=== PATIENT | female | born 1985 | race Caucasian/White ===

== ENCOUNTER 2018-10-20 08:29 | Inpatient (IN) | payer OTHER ==
[2018-10-20 09:26] VITALS: BMI 18.9
--- NOTE | 2018-10-20 10:00 | HP ---
COWS - Scale Resting Pulse: 0= MS 80 or Below Sweatin= Chills/Flushing Restless Observation: 1= Difficult to Sit Still Pupil Size: 1= Pupils >than Normal Bone or Joint Aches: 2= Severe Diffuse Aches Runny Nose/ Eye Tearin= Runny Nose/Eyes GI Upset > 30mins: 3= Vomiting/Diarrhea Tremor Observation: 2= Slight Tremor Visible Yawning Observation: 2= >3x During Session Anxiety or Irritability: 2=Irritable/Anxious Goose Flesh Skin: 0=Smooth Skin COWS Score: 16 CIWA Score Nausea/Vomitin Muscle Tremors: 2 Anxiety: 2 Agitation: 2 Paroxysmal Sweats: 1-Minimal Palms Moist Orientation: 0-Oriented Tacttile Disturbances: 1-Very Mild Itch/Numbness Auditory Disturbances: 1-Very Mild Visual Disturbances: 0-None Headache: 2-Mild CIWA-Ar Total Score: 13 - Admission Criteria OASAS Guidelines: Admission for Medically Managed Detox: Requires at least one of the followin. CIWA greater than 12 2. Seizures within the past 24 hours 3. Delirium tremens within the past 24 hours 4. Hallucinations within the past 24 hours 5. Acute intervention needed for co occurring medical disorder 6. Acute intervention needed for co occurring psychiatric disorder 7. Severe withdrawal that cannot be handled at a lower level of care (continued vomiting, continued diarrhea, abnormal vital signs) requiring intravenous medication and/or fluids 8. Admission ROS [facility] Chief Complaint: i need help to stop using heroin ,xanax,klonopin,ccoaine,marijuana Allergies/Adverse Reactions: Allergies Allergy/AdvReac Type Severity Reaction Status Date / Time No Known Allergies Allergy Verified 10/20/18 09:16 History of Present Illness: this 33 years old female with heroin,xanax,klonopin,cocaine and marijuana dependence,seeking detox,withdrawal symptom, multiple admissions in detox,last [facility] in 2016 but keep relapsing syncope hepatitis c treated in 2016 nicotine dependence 1 pack/day,would like nicotine patch and gum longest sobriety 2 years anxiety,depression,adhd Exam Limitations: No Limitations - Ebola screening Have you traveled outside of the country in the last 21 days: No Have you had contact with anyone from an Ebola affected area: No Do you have a fever: No - Review of Systems Constitutional: Chills, Loss of Appetite, Malaise, Night Sweats, Changes in sleep, Weakness, Unintentional Wgt. Loss EENT: reports: Tearing, Nose Congestion Respiratory: reports: No Symptoms reported Cardiac: reports: No Symptoms Reported GI: reports: Diarrhea, Nausea, Vomiting, Abdominal cramping : reports: No Symptoms Reported Musculoskeletal: reports: Back Pain, Joint Pain, Muscle Pain, Neck Pain Integumentary: reports: Dryness Neuro: reports: Headache, Tremors Endocrine: reports: No Symptoms Reported Hematology: reports: No Symptoms Reported Psychiatric: reports: No Sypmtoms Reported, Judgement Intact, Mood/Affect Appropiate, Orientated x3, Anxious, Depressed, other (adhd) Other Systems: Reviewed and Negative Patient History - Patient Medical History Hx Anemia: No Hx Asthma: No Hx Chronic Obstructive Pulmonary Disease (COPD): No Hx Cancer: No Hx Cardiac Disorders: No Hx Congestive Heart Failure: No Hx Hypertension: No Hx Hypercholesterolemia: No Hx Pacemaker: No HX Cerebrovascular Accident: No Hx Seizures: No Hx Dementia: No Hx Diabetes: No Hx Gastrointestinal Disorders: Yes (gerd -) Hx Liver Disease: No Hx Genitourinary Disorders: No Hx Sexually Transmitted Disorders: No Hx Renal Disease (ESRD): No Hx Thyroid Disease: No Hx Human Immunodeficiency Virus (HIV): No Hx Hepatitis C: Yes (NO TXMENT) Hx Depression: Yes (,) Hx Suicide Attempt: No Hx Bipolar Disorder: No Hx Schizophrenia: No - Patient Surgical History Past Surgical History: No Hx Neurologic Surgery: No Hx Cataract Extraction: No Hx Cardiac Surgery: No Hx Lung Surgery: No Hx Breast Surgery: No Hx Breast Biopsy: No Hx Abdominal Surgery: No Hx Appendectomy: No Hx Cholecystectomy: No Hx Genitourinary Surgery: No Hx Section: No Hx Orthopedic Surgery: No Hx Hysterectomy: No Anesthesia Reaction: No - PPD History Date: 12/16/14 Results: 0MM - Reproductive History Last Menstrual Period: 11/09/15 - Smoking Cessation Smoking history: Current every day smoker Have you smoked in the past 12 months: Yes Aproximately how many cigarettes per day: 10 Cigars Per Day: 0 Hx Chewing Tobacco Use: No Initiated information on smoking cessation: Yes 'Breaking Loose' booklet given: 10/20/18 - Substance & Tx. History Hx Alcohol Use: No Hx Substance Use: Yes Substance Use Type: Cocaine, Heroin, Tranquilizers Hx Substance Use Treatment: Yes (rené khan in 2016) - Substances abused Heroin Substance route: Injection Frequency: Daily Amount used: 10-20bags Age of first use: 25 Date of last use: 10/20/18 Cocaine Substance route: Smoking Frequency: Daily Amount used: 50usd Age of first use: 25 Date of last use: 10/20/18 Alprazolam (Xanax) Substance route: Oral Frequency: Daily Amount used: 8mg Age of first use: 32 Date of last use: 10/19/18 Benzodiazepine (Klonopin) Substance route: Oral Frequency: Daily Amount used: 15mg Age of first use: 32 Date of last use: 10/19/18 Other Other (specify): Adderall Substance route: Oral Frequency: Daily Amount used: 30mg Age of first use: 17 Date of last use: 10/19/18 Family Disease History - Family Disease History Family Disease History: Diabetes: Father, Heart Disease: Father, Other: Mother ( depression/ BIPOLAR), Sister (ALCOHOLISM/SUBSTANCE ABUSE) Admission Physical Exam [facility] - Vital Signs Vital Signs: Vital Signs - 24 hr 10/20/18 10/20/18 09:18 09:40 Temperature 97.5 F L 97.5 F L Pulse Rate 69 69 Respiratory 18 18 Rate Blood Pressure 109/70 109/70 - Physical General Appearance: Yes: Moderate Distress, Tremorous, Irritable, Sweating, Anxious HEENTM: Yes: Normal ENT Inspection, Normocephalic, Pharynx Normal Respiratory: Yes: Lungs Clear, Normal Breath Sounds, No Respiratory Distress Neck: Yes: Within Normal Limits, Supple, Trachea in good position Breast: Yes: Breast Exam Deferred Cardiology: Yes: Within Normal Limits, Regular Rhythm, Regular Rate, S1, S2 Abdominal: Yes: Within Normal Limits, Normal Bowel Sounds, Non Tender, Flat, Soft Genitourinary: Yes: Within Normal Limits Back: Yes: Muscle Spasm Musculoskeletal: Yes: Back pain, Joint Stiffness, Muscle Pain Extremities: Yes: Normal Range of Motion, Tremors Neurological: Yes: emergency medical tech II-XII NML intact, Fully Oriented, Alert, Motor Strength 5/5 Integumentary: Yes: Dry, Track Shin Lymphatic: Yes: Within Normal Limits - Diagnostic (1) Opioid dependence with withdrawal Current Visit: No Status: Acute (2) Hepatitis C Current Visit: Yes Status: Acute (3) Cocaine dependence, uncomplicated Current Visit: No Status: Acute (4) Nicotine dependence Current Visit: No Status: Acute Qualifiers: Nicotine product type: cigarettes Substance use status: uncomplicated Qualified Code(s): F17.210 - Nicotine dependence, cigarettes, uncomplicated (5) Sedative, hypnotic or anxiolytic dependence with withdrawal, uncomplicated Current Visit: No Status: Acute (6) ADHD (attention deficit hyperactivity disorder) Current Visit: No Status: Chronic (7) Weight loss Current Visit: Yes Status: Acute Cleared for Admission S - Detox or Rehab [facility] Level of Care: Medically Managed Detox Regimen/Protocol: Methadone Breathalyzer - Breathalyzer Breathalyzer: 0 Urine Drug Screen - Test Device Lot number: [id number] Expiration date: 06/19/20 - Control Is test valid?: Yes - Results Drug screen NEGATIVE: No Urine drug screen results: THC-Marijuana, MADDIE-Cocaine, MET-Methamphetamine, FEN- Fentanyl, MOP-Opiates, BUP-Suboxone Inpatient Rehab Admission - Rehab Decision to Admit Inpatient rehab admission?: No
[2018-10-20] MEDS ORDERED: BISMUTH SUBSALICYLATE 262 MG/15 ML BTL PO PRN (10:10)
[2018-10-20] MEDS ORDERED: ACETAMINOPHEN 325 MG TABLET (FP) PO PRN ×2 (10:10)
[2018-10-20] MEDS ORDERED: MAGNESIUM CITRATE 300 ML BOTTLE PO PRN (10:10)
[2018-10-20] MEDS ORDERED: cloNIDine HCL 0.1 MG TABLET PO PRN (10:10)
[2018-10-20] MEDS ORDERED: hydrOXYzine PAMOATE 25 MG CAPSULE (FP) PO PRN (10:10)
[2018-10-20] MEDS ORDERED: MELATONIN 5 MG TABLETS PO PRN (10:10)
[2018-10-20] MEDS ORDERED: NICOTINE POLACRILEX 2 MG GUM BUC PRN (10:10)
[2018-10-20] MEDS ORDERED: MENTHOL/PHENOL 1 EACH UD MM PRN (10:10)
[2018-10-20] MEDS ORDERED: MAG HYDROX/AL HYDROX/SIMETH 30 ML UNIT-DOSE CUP PO PRN (10:10)
[2018-10-20] MEDS ORDERED: MAGNESIUM HYDROX 2400MG/30ML ORAL SUSPENSION 30 ML CUP PO PRN (10:10)
[2018-10-20] MEDS ORDERED: METHADONE HCL 10 MG TABLET (FOR DETOX USE ONLY) PO ONE (10:35)
[2018-10-20] MEDS: diazePAM 5 MG TABLET PO PRN ×3 (11:08→22:12)
[2018-10-20] MEDS: NICOTINE 21 MG/24 HOURS TOPICAL PATCH TD SCH (11:08)
[2018-10-20 14:52] LABS: HEMOGLOBIN 12.2 GM/dL (10.7-15.3); MCH 27.3 pg (25.7-33.7); MCHC 32.9 g/dl (32.0-36.0); MEAN CELL VOLUME 82.9 fl (80-96); MEAN PLT VOLUME 10.1 fl (7.5-11.1); PLATELET COUNT 235 K/MM3 (134-434); RBC 4.46 M/mm3 (3.60-5.2); RDW 14.8 % (11.6-15.6); WHITE BLOOD COUNT 7.6 K/mm3 (4.0-10.0)
[2018-10-20 15:13] LABS: ALBUMIN 4.1 g/dl (3.4-5.0); BILIRUBIN,TOTAL 0.3 mg/dL (0.2-1); BLOOD UREA NITROGEN 15.2 mg/dL (7-18); CALCIUM 9.5 mg/dL (8.5-10.1); CREATININE 0.7 mg/dL (0.55-1.3); POTASSIUM 3.6 mmol/L (3.5-5.1); TOT PROT 7.6 g/dl (6.4-8.2)
--- NOTE | 2018-10-20 16:15 | CONSULT ---
[facility] Psychiatric Consult - Data Date of interview: 10/20/18 Admission source: [facility] Identifying data: This is one of multiple admissions to [facility] for this 33 y/ o female self-referred for detoxification treatment (heroin, cocaine, nicotine, benzodiazepines). Interviewed at [address] [place] [address]. Patient is single, a mother of one, domiciled, unemployed and supported on welfare. Substance Abuse History: Smoking history: Current every day smoker. Have you smoked in the past 12 months: Yes. Aproximately how many cigarettes per day: 10. Cigars Per Day: 0. Hx Chewing Tobacco Use: No. Initiated information on smoking cessation: Yes. 'Breaking Loose' booklet given: 10/20/18. - Substance & Tx. History. Hx Alcohol Use: No. Hx Substance Use: Yes. Substance Use Type : Cocaine, Heroin, Tranquilizers. Hx Substance Use Treatment: Yes (rené khan in 2016). - Substances abused. Heroin. Substance route: Injection. Frequency: Daily. Amount used: 10-20bags. Age of first use: 25. Date of last use: 10/20/18. Cocaine. Substance route: Smoking. Frequency: Daily. Amount used: 50usd. Age of first use: 25. Date of last use: 10/20/18. Alprazolam (Xanax). Substance route: Oral. Frequency: Daily. Amount used: 8mg. Age of first use: 32. Date of last use: 10/19/18. Benzodiazepine ( Klonopin). Substance route: Oral. Frequency: Daily. Amount used: 15mg. Age of first use: 32. Date of last use: 10/19/18. Other. Other (specify): Adderall. Substance route: Oral. Frequency: Daily. Amount used: 30mg. Age of first use: 17. Date of last use: 10/19/18 Medical History: Remarkable for hepatitis C, GERD and migraine headaches. Psychiatric History: History of one psychiatric hospitalization ([facility]) two years ago, as per self-report. First contact with Psychiatry occurred around age 10 (diagnosed with / treated for ADHD). History of OPD care at the [facility]. Added diagnoses : Bipolar Disorder, MDD, Anxiety Disorder, Mood Disorder. Ms Contreras has been treated on various medications, which include olanzapine, gabapentin, Vyvanse, topiramate, seroquel , thorazine, strattera and zolpidem. Past history of methadone maintenance ( [facility]). Patient sees a private psychiatrist in [facility]. Maintenance medications consist of neurontin + ambien + adderall (doses not recalled). She denies history of suicide attempts. Physical/Sexual Abuse/Trauma History: Patient denies history of abuse. Additional Comment: Urine drug screen results: THC-Marijuana, MADDIE-Cocaine, MET- Methamphetamine, FEN-Fentanyl, MOP-Opiates, BUP-Suboxone. Noted. Mental Status Exam - Mental Status Exam Alert and Oriented to: Time, Place, Person Cognitive Function: Good Patient Appearance: Well Groomed (thin habitus, pierced lower lip + metallic ring) Mood: Nervous, Anxious Affect: Appropriate, Normal Range Patient Behavior: Restless (in chair during interview), Fatigued, Talkative, Appropriate, Cooperative Speech Pattern: Clear, Appropriate Voice Loudness: Normal Thought Process: Goal Oriented Thought Disorder: Not Present Hallucinations: Denies Suicidal Ideation: Denies Homicidal Ideation: Denies Insight/Judgement: Poor Sleep: Poorly, Difficulty falling asleep Appetite: Good Gait/Station: Normal Psychiatric Findings - Problem List ([place] 1, 2,3) (1) Opioid dependence with withdrawal Current Visit: Yes Status: Acute (2) Sedative, hypnotic or anxiolytic dependence with withdrawal, uncomplicated Current Visit: Yes Status: Acute (3) Cocaine dependence, uncomplicated Current Visit: Yes Status: Chronic (4) Nicotine dependence Current Visit: Yes Status: Chronic Qualifiers: Nicotine product type: cigarettes Substance use status: uncomplicated Qualified Code(s): F17.210 - Nicotine dependence, cigarettes, uncomplicated (5) Substance induced mood disorder Current Visit: Yes Status: Chronic (6) ADHD (attention deficit hyperactivity disorder) Current Visit: Yes Status: Chronic Comment: By history. (7) Bipolar disorder Current Visit: Yes Status: Chronic Comment: By history. (8) Insomnia Current Visit: Yes Status: Chronic (9) Non-compliance Current Visit: Yes Status: Chronic - Initial Treatment Plan Initial Treatment Plan: Records ([facility]) : reviewed. Psychoeducation. Interviewed in the presence of medical students (patient gave verbal permission). Detoxification. Sleep hygiene. Motivational counseling. AA/NA meetings. Relapse prevention (MAT) discussed with the patient. Gabapentin 300 mg po tid. Side effects/benefits discussed with patikiana. Verbal consent granted to . Observation.
[2018-10-20] MEDS: IBUPROFEN 400 MG TABLET (FP) PO PRN ×2 (16:25→22:12)
[2018-10-20] MEDS ORDERED: GABAPENTIN 400 MG CAPSULE (FP) PO SCH (22:00)
[2018-10-20] MEDS: THIAMINE HCL 100 MG TABLET (FP) PO SCH (22:07)
[2018-10-20] MEDS: GABAPENTIN 300 MG CAPSULE (FP) PO SCH (22:17)
[2018-10-20] MEDS: METHOCARBAMOL 500 MG TABLET PO PRN (23:41)
[2018-10-20] MEDS ORDERED: traZODone HCL 50 MG TABLET (FP) PO ONE (23:42)
[2018-10-21] MEDS ORDERED: METHADONE HCL 5 MG TABLET (FOR DETOX USE ONLY) ONE (08:16)
[2018-10-21] MEDS ORDERED: METHADONE HCL 10 MG TABLET (FOR DETOX USE ONLY) ONE (08:16)
[2018-10-21] MEDS ORDERED: METHADONE (DETOX) 20 MG, METHADONE (DETOX) 5 MG PO ONE (10:00)
[2018-10-21] MEDS: NICOTINE 21 MG/24 HOURS TOPICAL PATCH TD SCH (10:21)
[2018-10-21] MEDS: GABAPENTIN 300 MG CAPSULE (FP) PO SCH ×2 (10:22→22:24)
[2018-10-21] MEDS: PRENATAL VITAMINS W/ FOLIC ACID TABLET (FP) PO SCH (10:22)
[2018-10-21] MEDS: PANTOPRAZOLE 40 MG TABLET (FP) PO SCH (10:22)
[2018-10-21] MEDS: METHOCARBAMOL 500 MG TABLET PO PRN ×2 (10:25→17:42)
--- NOTE | 2018-10-21 11:53 | PN ---
S CIWA - CIWA Score Nausea/Vomitin Muscle Tremors: 2 Anxiety: 4-Mod. Anxious/Guarded Agitation: 3 Paroxysmal Sweats: No Perspiration Orientation: 0-Oriented Tacttile Disturbances: 0-None Auditory Disturbances: 0-None Visual Disturbances: 0-None Headache: 1-Very Mild CIWA-Ar Total Score: 12 BHS COWS - Scale Resting Pulse: 1= [place] 81-100 Sweatin= Chills/Flushing Restless Observation: 1= Difficult to Sit Still Pupil Size: 0= Normal to Room Light Bone or Joint Aches: 1= Mild Discomfort Runny Nose/ Eye Tearin= Nasal Congestion GI Upset > 30mins: 1= Stomach Cramp Tremor Observation of Outstretched Hands: 1= Tremor [place], Not Seen Yawning Observation: 1= 1-2x During Session Anxiety or Irritability: 1=Feels Anxious/Irritable Goose Flesh Skin: 3=Piloerection COWS Score: 12 BHS Progress Note (SOAP) Subjective: pt states she feels very anxious/agitation, thinks that she is in withdrawal from Klonopin- pt states that she gets from her PCP. IStop shows that she rec'd Konopin 1mg tabs #60 and adderall 20mg tabs #30 on OL Vital Signs - 24 hr 10/20/18 10/20/18 10/20/18 13:32 17:22 21:28 Temperature 97.1 F L 98 F 97.8 F Pulse Rate 75 60 63 Respiratory 18 16 16 Rate Blood Pressure 122/77 110/65 101/63 10/21/18 10/21/18 10/21/18 00:30 03:30 06:10 Temperature 97.2 F L Pulse Rate 61 Respiratory 18 16 16 Rate Blood Pressure 98/58 L 10/21/18 10/21/18 06:30 09:06 Temperature 97.1 F L Pulse Rate 56 L Respiratory 16 16 Rate Blood Pressure 89/56 L Laboratory Tests 10/20/18 10/20/18 10/20/18 09:41 10:30 10:30 WBC 7.6 RBC 4.46 Hgb 12.2 Hct 37.0 MCV 82.9 MCH 27.3 MCHC 32.9 RDW 14.8 Plt Count 235 MPV 10.1 Sodium 138 Potassium 3.6 Chloride 105 Carbon Dioxide 25 Anion Gap 8 BUN 15.2 Creatinine 0.7 Est GFR (CKD-EPI)AfAm 133.81 Est GFR (CKD-EPI)NonAf 115.45 Random Glucose 95 Calcium 9.5 Total Bilirubin 0.3 AST 13 L ALT 13 Alkaline Phosphatase 48 Total Protein 7.6 Albumin 4.1 POC Urine HCG, Qual Negative a/p: continue heroin detox will start Klonopin prn
[2018-10-21] MEDS: clonazePAM 0.5 MG TABLET PO PRN ×2 (13:09→22:26)
[2018-10-21] MEDS: IBUPROFEN 400 MG TABLET (FP) PO PRN ×2 (15:00→22:27)
--- NOTE | 2018-10-21 17:03 | PN ---
Psychiatric Progress Note Vital Signs: Vital Signs Period Temp Pulse Resp BP Sys/Novak Pulse Ox Last 24 Hr 96.9 F-98 F 56-63 16-18 89-137/56-67 Date of Session: 10/21/18 Chief Complaint:: " I need seroquel for my anxiety and insomnia. " HPI: Called to reconsult on this patient for complaint of insomnia and feelings of anxiety (jitteriness). ROS: Alert and fully oriented, restless. Apprehensive. Current Medications: Active Medications Generic Name Dose Route Start Last Admin Trade Name Freq PRN Reason Stop Dose Admin Acetaminophen 650 mg 10/20/18 10:10 Tylenol - PO Q6H PRN PAIN LEVEL 4 - 6 Acetaminophen 650 mg 10/20/18 10:10 Tylenol - PO Q6H PRN FEVER Al Hydroxide/Mg Hydroxide 30 ml 10/20/18 10:10 Mylanta Oral Suspension - PO Q6H PRN DYSPEPSIA Bismuth Subsalicylate 30 ml 10/20/18 10:10 Pepto-Bismol Liquid - PO Q1H PRN DIARRHEA Clonazepam 0.5 mg 10/21/18 10:43 10/21/18 13:09 Klonopin - PO 0.5 mg BID PRN Administration ANXIETY Clonidine 0.1 mg 10/20/18 10:10 Catapres - PO 10/22/18 23:59 Q4H PRN Withdrawal Symptoms Eucalyptus/Menthol/Phenol/Sorbitol 1 each 10/20/18 10:10 Cepastat Lozenge - MM 10/26/18 10:10 Q4H PRN SORE THROAT Gabapentin 300 mg 10/20/18 22:15 10/21/18 10:22 Neurontin - PO 300 mg BID AHMET Administration Hydroxyzine Pamoate 25 mg 10/20/18 10:10 Vistaril - PO 10/26/18 10:10 Q6H PRN For Anxiety Ibuprofen 400 mg 10/20/18 10:10 10/21/18 15:00 Motrin - PO 400 mg Q6H PRN Administration PAIN LEVEL 1 - 3 Magnesium Citrate 300 ml 10/20/18 10:10 Citroma - PO Q48H PRN CONSTIPATION Magnesium Hydroxide 30 ml 10/20/18 10:10 Milk Of Magnesia - PO PRN PRN CONSTIPATION Melatonin 5 mg 10/20/18 10:10 Melatonin PO HS PRN INSOMNIA Methadone HCl 10 mg/ Methadone 15 mg 10/23/18 10:00 HCl 5 mg PO 10/23/18 10:01 ONCE ONE Methadone HCl 5 mg 10/25/18 06:00 Dolophine - PO 10/25/18 06:01 ONCE@0600 ONE Methadone HCl 10 mg 10/24/18 10:00 Dolophine - PO 10/24/18 10:01 ONCE ONE Methadone HCl 20 mg 10/22/18 10:00 Dolophine - PO 10/22/18 10:01 ONCE ONE Methocarbamol 500 mg 10/20/18 10:10 10/21/18 10:25 Robaxin - PO 10/26/18 10:10 500 mg Q6H PRN Administration MUSCLE SPASMS Nicotine 21 mg 10/20/18 10:35 10/21/18 10:21 Nicoderm Patch - TD 21 mg DAILY AHMET Administration Nicotine Polacrilex 2 mg 10/20/18 10:10 10/20/18 16:01 Nicorette Gum - BUC 2 mg Q2H PRN Administration NICOTINE REPLACEMENT RX Pantoprazole Sodium 40 mg 10/21/18 10:00 10/21/18 10:22 Protonix - PO 40 mg DAILY AHMET Administration Multivit/Folic Acid/Iron 1 tab 10/21/18 10:00 10/21/18 10:22 Vitamins (Sjr) - PO 1 tab DAILY AHMET Administration Quetiapine Fumarate 100 mg 10/21/18 22:00 Seroquel - PO HS AHMET Quetiapine Fumarate 25 mg 10/21/18 17:00 Seroquel - PO DAILY AHMET Thiamine HCl 100 mg 10/20/18 22:00 10/20/18 22:07 Vitamin B1 - PO 100 mg HS AHMET Administration Medication(s) Change(s): Added to the regimen : seroquel 25 mg po daily + 100 mg po hs. Side effects/benefits discussed with patient. Made aware of potential for metabolic syndrome, orthostasis and falls. Patient agrees with intervention. Verbal consent granted to MD. Current Side Effect: No Lab tests ordered: No Lab tests reviewed: Yes Provider note:: Met with the patient in the presence of medical students. Ms Contreras complains of feeling anxious and requests that seroquel be added to the regimen. Otherwise, hosptal course is uneventful. Patient is observed as sociable, visible on the unit, neatly groomed and receptive to redirections. Psychiatrically stable. Total face to face time:: 35 Mental Status Exam - Mental Status Exam Alert and Oriented to: Time, Place, Person Cognitive Function: Good Patient Appearance: Well Groomed Mood: Nervous, Anxious Affect: Appropriate, Normal Range Patient Behavior: Restless, Cooperative Speech Pattern: Clear, Appropriate Voice Loudness: Normal Thought Process: Goal Oriented Thought Disorder: Not Present Hallucinations: Denies Suicidal Ideation: Denies Homicidal Ideation: Denies Insight/Judgement: Poor Sleep: Poorly, Difficulty falling asleep Appetite: Good Gait/Station: Normal Psychiatric Treatment Plan - Problem List (1) Opioid dependence with withdrawal Current Visit: Yes Comment: . (2) Sedative, hypnotic or anxiolytic dependence with withdrawal, uncomplicated Current Visit: Yes Comment: . (3) Cocaine dependence, uncomplicated Current Visit: Yes Comment: . (4) Nicotine dependence Current Visit: Yes Qualifiers: Nicotine product type: cigarettes Substance use status: uncomplicated Qualified Code(s): F17.210 - Nicotine dependence, cigarettes, uncomplicated Comment: . (5) Substance induced mood disorder Current Visit: Yes Comment: . (6) ADHD (attention deficit hyperactivity disorder) Current Visit: Yes Comment: By history. (7) Bipolar disorder Current Visit: Yes Comment: .By history. (8) Insomnia Current Visit: Yes (9) Non-compliance Current Visit: Yes Comment: .
[2018-10-21] MEDS: QUEtiapine FUMARATE 25 MG TABLET (FP) PO SCH (17:42)
[2018-10-21] MEDS: QUEtiapine FUMARATE 100 MG TABLET (FP) PO SCH (22:25)
[2018-10-21] MEDS: THIAMINE HCL 100 MG TABLET (FP) PO SCH (22:25)
[2018-10-22] MEDS ORDERED: METHADONE HCL 10 MG TABLET (FOR DETOX USE ONLY) PO ONE (10:00)
[2018-10-22] MEDS: QUEtiapine FUMARATE 25 MG TABLET (FP) PO SCH (10:16)
[2018-10-22] MEDS: PRENATAL VITAMINS W/ FOLIC ACID TABLET (FP) PO SCH (10:17)
[2018-10-22] MEDS: NICOTINE 21 MG/24 HOURS TOPICAL PATCH TD SCH (10:17)
[2018-10-22] MEDS: PANTOPRAZOLE 40 MG TABLET (FP) PO SCH (10:17)
[2018-10-22] MEDS: GABAPENTIN 300 MG CAPSULE (FP) PO SCH ×2 (10:17→22:15)
[2018-10-22] MEDS: METHOCARBAMOL 500 MG TABLET PO PRN ×2 (10:19→19:01)
[2018-10-22] MEDS: clonazePAM 0.5 MG TABLET PO PRN ×2 (10:19→22:15)
[2018-10-22] MEDS: IBUPROFEN 400 MG TABLET (FP) PO PRN ×2 (10:19→19:47)
[2018-10-22] MEDS ORDERED: ONDANSETRON *ODT* 4 MG TABLET SL PRN (14:33)
--- NOTE | 2018-10-22 14:33 | PN ---
S CIWA - CIWA Score Nausea/Vomitin (N/V/D) Muscle Tremors: 2 Anxiety: 4-Mod. Anxious/Guarded Agitation: 3 Paroxysmal Sweats: 1-Minimal Palms Moist Orientation: 0-Oriented Tacttile Disturbances: 0-None Auditory Disturbances: 0-None Visual Disturbances: 0-None Headache: 0-None Present CIWA-Ar Total Score: 15 BHS COWS - Scale Resting Pulse: 0= [place] 80 or Below Sweatin= Chills/Flushing Restless Observation: 3= Extraneous Movement Pupil Size: 0= Normal to Room Light Bone or Joint Aches: 4=Acute Joint/Muscle Pain Runny Nose/ Eye Tearin= None GI Upset > 30mins: 3= Vomiting/Diarrhea Tremor Observation of Outstretched Hands: 2= Slight Tremor Visible Yawning Observation: 0= None Anxiety or Irritability: 1=Feels Anxious/Irritable Goose Flesh Skin: 0=Smooth Skin COWS Score: 14 BHS Progress Note (SOAP) Subjective: PT C/O ANXIETY, IRRITABILITY, NAUSEA/VOMITING/DIARRHEA, FATIGUE. Objective: 10/22/18 14:30 Vital Signs - 24 hr 10/21/18 10/21/18 10/22/18 17:32 21:30 00:30 Temperature 98.4 F 98.2 F Pulse Rate 64 67 Respiratory 16 18 18 Rate Blood Pressure 102/61 124/77 10/22/18 10/22/18 10/22/18 03:30 08:21 09:41 Temperature 97.9 F 96.9 F L Pulse Rate 61 74 Respiratory 18 16 18 Rate Blood Pressure 97/60 101/57 L 10/22/18 13:23 Temperature 98.9 F Pulse Rate 82 Respiratory 18 Rate Blood Pressure 113/67 Laboratory Tests 10/20/18 10/20/18 10/20/18 09:41 10:30 10:30 WBC 7.6 RBC 4.46 Hgb 12.2 Hct 37.0 MCV 82.9 MCH 27.3 MCHC 32.9 RDW 14.8 Plt Count 235 MPV 10.1 Sodium 138 Potassium 3.6 Chloride 105 Carbon Dioxide 25 Anion Gap 8 BUN 15.2 Creatinine 0.7 Est GFR (CKD-EPI)AfAm 133.81 Est GFR (CKD-EPI)NonAf 115.45 Random Glucose 95 Calcium 9.5 Total Bilirubin 0.3 AST 13 L ALT 13 Alkaline Phosphatase 48 Total Protein 7.6 Albumin 4.1 POC Urine HCG, Qual Negative RPR Titer 10/20/18 10:30 WBC RBC Hgb Hct MCV MCH MCHC RDW Plt Count MPV Sodium Potassium Chloride Carbon Dioxide Anion Gap BUN Creatinine Est GFR (CKD-EPI)AfAm Est GFR (CKD-EPI)NonAf Random Glucose Calcium Total Bilirubin AST ALT Alkaline Phosphatase Total Protein Albumin POC Urine HCG, Qual RPR Titer Nonreactive Assessment: 10/22/18 14:31 WITHDRAWAL SX Plan: CONTINUE DETOX ZOFRAN 8 MG ODT SL Q8H FOR N/V PEPTO BISMOL FOR DIARRHEA
[2018-10-22] MEDS: QUEtiapine FUMARATE 100 MG TABLET (FP) PO SCH (22:15)
[2018-10-22] MEDS: THIAMINE HCL 100 MG TABLET (FP) PO SCH (22:15)
[2018-10-23] MEDS ORDERED: METHADONE HCL 5 MG TABLET (FOR DETOX USE ONLY) ONE (09:04)
[2018-10-23] MEDS ORDERED: METHADONE HCL 10 MG TABLET (FOR DETOX USE ONLY) ONE (09:04)
[2018-10-23] MEDS ORDERED: METHADONE (DETOX) 10 MG, METHADONE (DETOX) 5 MG PO ONE (10:00)
[2018-10-23] MEDS: GABAPENTIN 300 MG CAPSULE (FP) PO SCH ×2 (10:17→22:49)
[2018-10-23] MEDS: QUEtiapine FUMARATE 25 MG TABLET (FP) PO SCH (10:17)
[2018-10-23] MEDS: NICOTINE 21 MG/24 HOURS TOPICAL PATCH TD SCH (10:18)
[2018-10-23] MEDS: PRENATAL VITAMINS W/ FOLIC ACID TABLET (FP) PO SCH (10:18)
[2018-10-23] MEDS: METHOCARBAMOL 500 MG TABLET PO PRN (10:24)
[2018-10-23] MEDS: clonazePAM 0.5 MG TABLET PO PRN ×2 (10:24→22:48)
[2018-10-23] MEDS: PANTOPRAZOLE 40 MG TABLET (FP) PO SCH (10:38)
--- NOTE | 2018-10-23 10:46 | PN ---
S CIWA - CIWA Score Nausea/Vomitin-No Nausea/No Vomiting Muscle Tremors: 2 Anxiety: 2 Agitation: 1-Slight > Activity Paroxysmal Sweats: 2 Orientation: 0-Oriented Tacttile Disturbances: 0-None Auditory Disturbances: 0-None Visual Disturbances: 0-None Headache: 1-Very Mild CIWA-Ar Total Score: 8 BHS COWS - Scale Resting Pulse: 0= [place] 80 or Below Sweatin= Chills/Flushing Restless Observation: 1= Difficult to Sit Still Pupil Size: 0= Normal to Room Light Bone or Joint Aches: 0= None Runny Nose/ Eye Tearin= None GI Upset > 30mins: 0= None Tremor Observation of Outstretched Hands: 2= Slight Tremor Visible Yawning Observation: 1= 1-2x During Session Anxiety or Irritability: 2=Irritable/Anxious Goose Flesh Skin: 0=Smooth Skin COWS Score: 7 BHS Progress Note (SOAP) Subjective: c/o irritability, anxiety, and interrupted sleep. Objective: 10/23/18 10:46 Vital Signs 10/23/18 10/23/18 10/23/18 03:30 06:00 09:30 Temperature 96.6 F L 98.6 F Pulse Rate 57 L 76 Respiratory 18 16 20 Rate Blood Pressure 84/49 L 100/68 Assessment: 10/23/18 10:46 AOX3, in no acute respiratory distress Full ROM, ambulating in the unit. mild withdrawal symptoms. Plan: continue detox.
[2018-10-23] MEDS: QUEtiapine FUMARATE 100 MG TABLET (FP) PO SCH (22:49)
[2018-10-23] MEDS: THIAMINE HCL 100 MG TABLET (FP) PO SCH (22:49)
[2018-10-24] MEDS ORDERED: METHADONE HCL 10 MG TABLET (FOR DETOX USE ONLY) PO ONE (10:00)
[2018-10-24] MEDS: GABAPENTIN 300 MG CAPSULE (FP) PO SCH ×2 (10:23→22:19)
[2018-10-24] MEDS: PANTOPRAZOLE 40 MG TABLET (FP) PO SCH (10:23)
[2018-10-24] MEDS: PRENATAL VITAMINS W/ FOLIC ACID TABLET (FP) PO SCH (10:23)
[2018-10-24] MEDS: QUEtiapine FUMARATE 25 MG TABLET (FP) PO SCH (10:23)
[2018-10-24] MEDS: clonazePAM 0.5 MG TABLET PO PRN ×2 (10:25→22:18)
[2018-10-24] MEDS: METHOCARBAMOL 500 MG TABLET PO PRN ×2 (10:25→22:19)
[2018-10-24] MEDS: NICOTINE 21 MG/24 HOURS TOPICAL PATCH TD SCH (10:25)
--- NOTE | 2018-10-24 11:24 | PN ---
S CIWA - CIWA Score Nausea/Vomitin Muscle Tremors: 1-None Visible, but [place] Anxiety: 1-Mildly Anxious Agitation: 1-Slight > Activity Paroxysmal Sweats: 1-Minimal Palms Moist Orientation: 0-Oriented Tacttile Disturbances: 1-Very Mild Itch/Numbness Auditory Disturbances: 0-None Visual Disturbances: 0-None Headache: 0-None Present CIWA-Ar Total Score: 7 BHS COWS - Scale Resting Pulse: 0= [place] 80 or Below Sweatin= Chills/Flushing Restless Observation: 0= Sits Still Pupil Size: 1= Pupils >than Normal Bone or Joint Aches: 1= Mild Discomfort Runny Nose/ Eye Tearin= None GI Upset > 30mins: 2= Nausea/Diarrhea Tremor Observation of Outstretched Hands: 1= Tremor [place], Not Seen Yawning Observation: 0= None Anxiety or Irritability: 1=Feels Anxious/Irritable Goose Flesh Skin: 0=Smooth Skin COWS Score: 7 S Progress Note (SOAP) Subjective: interrupted sleep, sweats, diarrhea Objective: 10/24/18 11:23 Vital Signs Temperature 96.9 F L 10/24/18 06:45 Pulse Rate 63 10/24/18 06:45 Respiratory Rate 16 10/24/18 06:45 Blood Pressure 113/60 10/24/18 06:45 O2 Sat by Pulse Oximetry (%) Laboratory Tests 10/20/18 10/20/18 10/20/18 09:41 10:30 10:30 WBC 7.6 RBC 4.46 Hgb 12.2 Hct 37.0 MCV 82.9 MCH 27.3 MCHC 32.9 RDW 14.8 Plt Count 235 MPV 10.1 Sodium 138 Potassium 3.6 Chloride 105 Carbon Dioxide 25 Anion Gap 8 BUN 15.2 Creatinine 0.7 Est GFR (CKD-EPI)AfAm 133.81 Est GFR (CKD-EPI)NonAf 115.45 Random Glucose 95 Calcium 9.5 Total Bilirubin 0.3 AST 13 L ALT 13 Alkaline Phosphatase 48 Total Protein 7.6 Albumin 4.1 POC Urine HCG, Qual Negative RPR Titer 10/20/18 10:30 WBC RBC Hgb Hct MCV MCH MCHC RDW Plt Count MPV Sodium Potassium Chloride Carbon Dioxide Anion Gap BUN Creatinine Est GFR (CKD-EPI)AfAm Est GFR (CKD-EPI)NonAf Random Glucose Calcium Total Bilirubin AST ALT Alkaline Phosphatase Total Protein Albumin POC Urine HCG, Qual RPR Titer Nonreactive Assessment: 10/24/18 11:25 withdrawal sx's Plan: cont. detox increase fluids imodium prn.m
[2018-10-24] MEDS: IBUPROFEN 400 MG TABLET (FP) PO PRN ×2 (14:59→22:21)
[2018-10-24] MEDS: QUEtiapine FUMARATE 100 MG TABLET (FP) PO SCH (22:19)
[2018-10-24] MEDS: THIAMINE HCL 100 MG TABLET (FP) PO SCH (22:19)
[2018-10-25] MEDS ORDERED: METHADONE HCL 5 MG TABLET (FOR DETOX USE ONLY) PO ONE (06:00)
[2018-10-25] MEDS: METHOCARBAMOL 500 MG TABLET PO PRN (06:23)
[2018-10-25] MEDS: IBUPROFEN 400 MG TABLET (FP) PO PRN (06:23)
[2018-10-25 08:06] VITALS: BP 88/46; PULSE 61; TEMP 97.3
--- NOTE | 2018-10-25 14:59 | DS ---
[facility] Detox Discharge Summary Admission Date: 10/20/18 Discharge Date: 10/25/18 - History Present History: Alcohol Dependence, Cocaine Dependence, Sedative Dependence Additional Comments: Pt is medically cleared and discharged today. Pt completed her detox protocol. As per counselor's notes, "Patient is interested in the [facility] rehab as well as the [facility] rehab located at [address] [place] [address] , Patient now has two options for Rehab inpatient services". Pt is encouraged to follow-up with her pmd and also to follow-up with CD program as discussed with her counselor. Pt verbalized understanding. Pt is alert and oriented x3 and in no respiratory distress. Pertinent Past History: H/o heroine, benzo, and cocaine use disorder. - Physical Exam Results Vital Signs: Vital Signs Temperature 97.3 F L 10/25/18 08:05 Pulse Rate 61 10/25/18 08:05 Respiratory Rate 16 10/25/18 08:05 Blood Pressure 88/46 L 10/25/18 08:05 O2 Sat by Pulse Oximetry (%) Vital Signs 10/25/18 08:05 Temperature 97.3 F L Pulse Rate 61 Respiratory 16 Rate Blood Pressure 88/46 L Lab Results WBC 7.6 K/mm3 (4.0-10.0) 10/20/18 10:30 RBC 4.46 M/mm3 (3.60-5.2) 10/20/18 10:30 Hgb 12.2 GM/dL (10.7-15.3) 10/20/18 10:30 Hct 37.0 % (32.4-45.2) 10/20/18 10:30 MCV 82.9 fl (80-96) 10/20/18 10:30 MCHC 32.9 g/dl (32.0-36.0) 10/20/18 10:30 RDW 14.8 % (11.6-15.6) 10/20/18 10:30 Plt Count 235 K/MM3 (134-434) 10/20/18 10:30 Sodium 138 mmol/L (136-145) 10/20/18 10:30 Potassium 3.6 mmol/L (3.5-5.1) 10/20/18 10:30 Chloride 105 mmol/L (98-107) 10/20/18 10:30 Carbon Dioxide 25 mmol/L (21-32) 10/20/18 10:30 Anion Gap 8 MMOL/L (8-16) 10/20/18 10:30 BUN 15.2 mg/dL (7-18) 10/20/18 10:30 Creatinine 0.7 mg/dL (0.55-1.3) 10/20/18 10:30 Random Glucose 95 mg/dL (74-106) 10/20/18 10:30 Calcium 9.5 mg/dL (8.5-10.1) 10/20/18 10:30 Labs noted. Pertinent Admission Physical Exam Findings: withdrawal symptoms. - Treatment Hospital Course: Detox Protocol Followed, Detoxed Safely, Responded well, Discharged Condition Good - Medication Discharge Medications: Ambulatory Orders Zolpidem Tartrate [Ambien] 10 mg PO HS 03/31/15 Pantoprazole Sodium [Protonix -] 40 mg PO DAILY #30 tablet.ec 09/05/15 Gabapentin [Neurontin -] 300 mg PO BID 12/13/15 Gabapentin [Neurontin -] 300 mg PO BID #60 capsule 12/14/15 Zolpidem Tartrate 5 mg PO HS #7 tablet MDD 5 mg 12/14/15 - Diagnosis (1) Hepatitis C Status: Acute (2) Heroin dependence Status: Acute (3) Opioid dependence with withdrawal Status: Acute - AMA Did Patient Leave Against Medical Advice: No
== END 2018-10-25 09:15 | disposition home or self-care (01) | DRG 773 ==
LOC: YASAS 08:29 → Y3N 10:19 → Y6N 10-21 19:08
PROVIDERS: ADMIT Surgery; ATTEND Surgery
PROC: HZ2ZZZZ Detoxification Services for Substance Abuse Treatment (ICD-10-PCS; principal; 2018-10-20)
DX: F11.23 Opioid dependence with withdrawal (principal); F13.230 Sedative, hypnotic or anxiolytic dependence with withdrawal, uncomplicated; F14.20 Cocaine dependence, uncomplicated; F17.210 Nicotine dependence, cigarettes, uncomplicated; F19.24 Other psychoactive substance dependence with psychoactive substance-induced mood disorder; F31.9 Bipolar disorder, unspecified; F90.9 Attention-deficit hyperactivity disorder, unspecified type; F41.9 Anxiety disorder, unspecified; G47.00 Insomnia, unspecified; B18.2 Chronic viral hepatitis C; Z91.19 Patient's noncompliance with other medical treatment and regimen
CPT/HCPCS: 36415; 80053; 81025; 85027; 86593

== ENCOUNTER 2019-02-23 09:26 | Inpatient (IN) | payer OTHER ==
[2019-02-23 10:04] VITALS: BMI 19.8
--- NOTE | 2019-02-23 11:02 | HP ---
COWS - Scale Resting Pulse: 0= [place] 80 or Below Sweatin=Flushed/Facial Moisture Restless Observation: 1= Difficult to Sit Still Pupil Size: 1= Pupils >than Normal Bone or Joint Aches: 2= Severe Diffuse Aches Runny Nose/ Eye Tearin= Runny Nose/Eyes GI Upset > 30mins: 2= Nausea/Diarrhea Tremor Observation: 2= Slight Tremor Visible Yawning Observation: 1= 1-2x During Session Anxiety or Irritability: 2=Irritable/Anxious Goose Flesh Skin: 3=Piloe[place] COWS Score: 18 CIWA Score - Admission Criteria [facility] Guidelines: Admission for Medically Managed Detox: Requires at least one of the followin. CIWA greater than 12 2. Seizures within the past 24 hours 3. Delirium tremens within the past 24 hours 4. Hallucinations within the past 24 hours 5. Acute intervention needed for co occurring medical disorder 6. Acute intervention needed for co occurring psychiatric disorder 7. Severe withdrawal that cannot be handled at a lower level of care (continued vomiting, continued diarrhea, abnormal vital signs) requiring intravenous medication and/or fluids 8. Admitting History and Physical - Admission Chief Complaint: " I want shooting heroin in my neck and I don't want to be doing that anymore. I want to be a good mother to my daughter. I need help. I can't do it myself." History of Present Illness: 34 year old female with history of opioid dependence with withdrawals , cocaine use disorder, and benzodiazepine use disorder. She is using 5 bags of heroin daily, intravenously, last use was this morning. She hasn't overdosed but has passed out. She was never given narcan. She does carry a nasal narcan. She is using Xanax 5 sticks per day, last used yesterday. She denies marijuana use, very rarely. She smokes crack $20 daily, last used yesterday PMH: None Psurg: None Psych: Depression , no antidepressants. Med: Klonopin, adderall, ambien. She is being prescribed suboxone but does not take it. She admits to selling it for buying other drugs. 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 I want to be a good mother to my daughter. I need help. I can't do it myself. " Allergies/Adverse Reactions: Allergies Allergy/AdvReac Type Severity Reaction Status Date / Time No Known Allergies Allergy Verified 02/23/19 09:56 History of Present Illness: 34 year old female with history of opioid dependence with withdrawals , cocaine use disorder, and benzodiazepine use disorder. She is using 5 bags of heroin daily, intravenously, last use was this morning. She hasn't overdosed but has passed out. She was never given narcan. She does carry a nasal narcan. She is using Xanax 5 sticks per day, last used yesterday. She denies marijuana use, very rarely. She smokes crack $20 daily, last used yesterday PMH: None Psurg: None Psych: Depression , no antidepressants. Med: Klonopin, adderall, ambien. She is being prescribed suboxone but does not take it. She admits to selling it for buying other drugs. - Ebola screening Have you traveled outside of the country in the last 21 days: No Have you had contact with anyone from an Ebola affected area: No Have you been sick,other than usual withdrawal symptoms: No Do you have a fever: No - Review of Systems Constitutional: Loss of Appetite, Unexplained wgt Loss EENT: reports: No Symptoms Reported Respiratory: reports: No Symptoms reported Cardiac: reports: No Symptoms Reported GI: reports: No Symptoms Reported : reports: No Symptoms Reported Musculoskeletal: reports: No Symptoms Reported Integumentary: reports: No Symptoms Reported Neuro: reports: No Symptoms reported Endocrine: reports: No Symptoms Reported Hematology: reports: No Symptoms Reported Psychiatric: reports: Judgement Intact, Mood/Affect Appropiate, Orientated x3, Agitated, Anxious Other Systems: Reviewed and Negative Patient History - Patient Medical History Hx Anemia: No Hx Asthma: No Hx Chronic Obstructive Pulmonary Disease (COPD): No Hx Cancer: No Hx Cardiac Disorders: No Hx Congestive Heart Failure: No Hx Hypertension: No Hx Hypercholesterolemia: No Hx Pacemaker: No HX Cerebrovascular Accident: No Hx Seizures: No Hx Dementia: No Hx Diabetes: No Hx Gastrointestinal Disorders: Yes (gerd -) Hx Liver Disease: No Hx Genitourinary Disorders: No Hx Sexually Transmitted Disorders: No Hx Renal Disease (ESRD): No Hx Thyroid Disease: No Hx Human Immunodeficiency Virus (HIV): No Hx Hepatitis C: Yes (NO TXMENT) Hx Depression: Yes (,) Hx Suicide Attempt: No Hx Bipolar Disorder: No Hx Schizophrenia: No - Patient Surgical History Past Surgical History: No Hx Neurologic Surgery: No Hx Cataract Extraction: No Hx Cardiac Surgery: No Hx Lung Surgery: No Hx Breast Surgery: No Hx Breast Biopsy: No Hx Abdominal Surgery: No Hx Appendectomy: No Hx Cholecystectomy: No Hx Genitourinary Surgery: No Hx Section: No Hx Orthopedic Surgery: No Hx Hysterectomy: No Anesthesia Reaction: No - PPD History Previous Implant?: Yes Documented Results: Negative w/proof Implanted On Prior R Admission?: Yes Date: 10/22/18 Results: 0MM PPD to be Administered?: No - Reproductive History Last Menstrual Period: 11/09/15 - Smoking Cessation Smoking history: Current every day smoker Have you smoked in the past 12 months: Yes Aproximately how many cigarettes per day: 10 Cigars Per Day: 0 Hx Chewing Tobacco Use: No Initiated information on smoking cessation: Yes 'Breaking Loose' booklet given: 02/23/19 - Substances abused Heroin Substance route: Injection Frequency: Daily Amount used: 5 bags Age of first use: 25 Date of last use: 02/23/19 Cocaine Substance route: Smoking Frequency: Daily Amount used: $50 Age of first use: 25 Date of last use: 02/22/19 Alprazolam (Xanax) Other (specify): 2mg Substance route: Oral Frequency: Daily Amount used: 5 bars Age of first use: 32 Date of last use: 02/21/19 Benzodiazepine (Klonopin) Substance route: Oral Frequency: Daily Amount used: 15mg Age of first use: 32 Date of last use: 10/19/18 Other Other (specify): Adderall Substance route: Oral Frequency: Daily Amount used: 30mg Age of first use: 17 Date of last use: 10/19/18 Admission Physical Exam [facility] - Vital Signs Vital Signs: Vital Signs - 24 hr 02/23/19 09:58 Temperature 98.9 F Pulse Rate 69 Respiratory 18 Rate Blood Pressure 105/71 - Physical General Appearance: Yes: Disheveled, Moderate Distress HEENTM: Yes: EOMI, Hearing grossly Normal, Normocephalic, Normal Voice, ANGELINE, Pharynx Normal, Tm's normal Respiratory: Yes: Chest Non-Tender, Lungs Clear, Normal Breath Sounds, No Respiratory Distress, No Accessory Muscle Use Neck: Yes: No masses,lesions,Nodules, Supple, Trachea in good position Cardiology: Yes: Regular Rhythm, Regular Rate, S1, S2 Abdominal: Yes: Increased Bowel Sounds Genitourinary: Yes: Within Normal Limits Back: Yes: Normal Inspection Musculoskeletal: Yes: full range of Motion, Gait Steady, Pelvis Stable Extremities: Yes: Normal Capillary Refill, Normal Inspection, Normal Range of Motion, Non-Tender Neurological: Yes: storage solutions architect II-XII NML intact, Fully Oriented, Alert, Motor Strength 5/5, Normal Response Integumentary: Yes: Normal Color, Warm Lymphatic: Yes: Within Normal Limits - Diagnostic (1) Anxiety disorder Current Visit: Yes Status: Acute (2) Opioid dependence with withdrawal Current Visit: Yes Status: Acute Comment: . (3) Weight loss Current Visit: Yes Status: Acute (4) ADHD (attention deficit hyperactivity disorder) Current Visit: Yes Status: Chronic Comment: By history. (5) Benzodiazepine dependence Current Visit: Yes Status: Chronic (6) Cocaine dependence, uncomplicated Current Visit: Yes Status: Chronic Comment: . (7) Gastroesophageal reflux disease Current Visit: Yes Status: Chronic Qualifiers: Esophagitis presence: esophagitis presence not specified Qualified Code(s) : K21.9 - Gastro-esophageal reflux disease without esophagitis Comment: treated with protonix Cleared for Admission [facility] - Detox or Rehab [facility] Level of Care: Medically Managed Detox Regimen/Protocol: Methadone Claeared for Rehab Admission: No Screened but not Admitted - Documentation of Visit Screened but not Admitted: No Breathalyzer - Breathalyzer Breathalyzer: 0 Vital Signs - Vital Signs Vital signs refused: No Urine Drug Screen - Test Device Lot number: [id number] Expiration date: 10/19/20 - Control Is test valid?: Yes - Results Drug screen NEGATIVE: No Urine drug screen results: THC-Marijuana, MADDIE-Cocaine, FEN-Fentanyl, MOP-Opiates , OXY-Oxycodone, BZO-Benzodiazepines Inpatient Rehab Admission - Rehab Decision to Admit Inpatient rehab admission?: No
[2019-02-23] MEDS ORDERED: MENTHOL/PHENOL 1 EACH UD MM PRN (11:08)
[2019-02-23] MEDS ORDERED: MAGNESIUM CITRATE 300 ML BOTTLE PO PRN (11:08)
[2019-02-23] MEDS ORDERED: MAGNESIUM HYDROX 2400MG/30ML ORAL SUSPENSION 30 ML CUP PO PRN (11:08)
[2019-02-23] MEDS ORDERED: BISMUTH SUBSALICYLATE 262 MG/15 ML BTL PO PRN (11:08)
[2019-02-23] MEDS ORDERED: MELATONIN 5 MG TABLETS PO PRN (11:08)
[2019-02-23] MEDS ORDERED: MAG HYDROX/AL HYDROX/SIMETH 30 ML UNIT-DOSE CUP PO PRN (11:08)
[2019-02-23] MEDS ORDERED: ACETAMINOPHEN 325 MG TABLET (FP) PO PRN ×2 (11:08)
[2019-02-23] MEDS ORDERED: METHADONE HCL 10 MG TABLET (FOR DETOX USE ONLY) PO ONE (12:00)
[2019-02-23] MEDS: METHOCARBAMOL 500 MG TABLET PO PRN ×2 (13:14→22:13)
[2019-02-23] MEDS: hydrOXYzine PAMOATE 25 MG CAPSULE (FP) PO PRN (13:14)
[2019-02-23] MEDS: cloNIDine HCL 0.1 MG TABLET PO PRN (13:14)
[2019-02-23 14:20] LABS: HEMATOCRIT 37.8 % (32.4-45.2); HEMOGLOBIN 12.6 GM/dL (10.7-15.3); MCHC 33.3 g/dl (32.0-36.0); MEAN CELL VOLUME 83.9 fl (80-96); MEAN PLT VOLUME 9.6 fl (7.5-11.1); PLATELET COUNT 283 K/MM3 (134-434); RDW 14.9 % (11.6-15.6); WHITE BLOOD COUNT 6.9 K/mm3 (4.0-10.0)
[2019-02-23 14:29] LABS: ALBUMIN 3.8 g/dl (3.4-5.0); BILIRUBIN,TOTAL 0.2 mg/dL (0.2-1); BLOOD UREA NITROGEN 13.9 mg/dL (7-18); CREATININE 0.8 mg/dL (0.55-1.3); POTASSIUM 3.9 mmol/L (3.5-5.1); TOT PROT 7.7 g/dl (6.4-8.2)
[2019-02-23] MEDS: DEXTROAMPHETAMINE/AMPHETAMINE 10 MG CAP.ER.24H PO SCH (17:25)
--- NOTE | 2019-02-23 17:49 | PN ---
[facility] Progress Note Note: C/o increased anxiety and tremors. Admission H&P reviewed. Hx daily use of benzo above what is prescribed. UTox reviewed and + for: THC-Marijuana, MADDIE-Cocaine, FEN-Fentanyl, MOP-Opiates, OXY-Oxycodone, BZO-Benzodiazepines Patient Name: Nishant Contreras Date: 1985 Address: [address] [place] [address] Sex: Female Rx Written Rx Dispensed Drug Quantity Days Supply Prescriber Name 02/13/2019 02/13/2019 clonazepam 1 mg tablet 60 30 ReenaAndre MD 02/13/2019 02/13/2019 buprenorphine-naloxone 8-2 mg sl film 90 30 ReenaAndre MD 02/13/2019 02/13/2019 dextroamp-amphetamin 20 mg tab 30 30 ReenaAndre MD Patient Name: Nishant Contreras Date: 1985 Address: [address] [place] [address] Sex: Female Rx Written Rx Dispensed Drug Quantity Days Supply Prescriber Name 08/15/2018 02/13/2019 zolpidem tartrate 10 mg tablet 30 30 ReenaAndre MD 08/15/2018 08/15/2018 dextroamp-amphetamin 20 mg tab 30 30 ReenaAndre MD 08/15/2018 08/15/2018 clonazepam 1 mg tablet 60 30 ReenaAndre MD 08/15/2018 08/15/2018 buprenorphine-naloxone 8-2 mg sl film 90 30 ReenaAndre MD 08/15/2018 08/15/2018 zolpidem tartrate 10 mg tablet 30 30 ReenaAndre MD 07/18/2018 07/18/2018 dextroamp-amphetamin 20 mg tab 30 30 ReenaAndre MD 07/18/2018 07/18/2018 clonazepam 1 mg tablet 60 30 ReenaAndre MD 07/18/2018 07/18/2018 buprenorphine-naloxone 8-2 mg sl film 90 30 ReenaAndre MD 06/20/2018 06/20/2018 vyvanse 50 mg capsule 30 30 ReenaAndre MD 06/20/2018 06/20/2018 clonazepam 1 mg tablet 60 30 ReenaAndre MD 06/20/2018 06/20/2018 buprenorphine-naloxone 8-2 mg sl film 90 30 ReenaAndre MD Patient Name: Nishant Contreras Date: 1985 Address: [place] [address] Sex: Female Rx Written Rx Dispensed Drug Quantity Days Supply Prescriber Name 01/16/2019 01/16/2019 buprenorphine-naloxone 8-2 mg sl film 90 30 Reena, Andre Vidal MD 01/16/2019 01/16/2019 dextroamp-amphetamin 20 mg tab 30 30 Reena, Andre Vidal MD 01/16/2019 01/16/2019 clonazepam 1 mg tablet 60 30 Reena, Andre Vidal MD 12/19/2018 12/19/2018 dextroamp-amphetamin 20 mg tab 30 30 ReenaAndre MD 12/19/2018 12/19/2018 buprenorphine-naloxone 8-2 mg sl film 90 30 Reena, Andre Vidal MD 12/19/2018 12/19/2018 clonazepam 1 mg tablet 60 30 ReenaAndre MD 11/08/2018 11/17/2018 zolpidem tartrate 10 mg tablet 30 30 Reena, Andre Vidal MD 11/13/2018 11/14/2018 diazepam 10 mg tablet 14 7 Reena, Andre Vidal MD 11/13/2018 11/14/2018 dextroamp-amphetamin 15 mg tab 7 7 Reena, Andre Vidal MD 11/07/2018 11/07/2018 clonazepam 1 mg tablet 60 30 ReenaAndre MD 11/07/2018 11/07/2018 dextroamp-amphetamin 20 mg tab 30 30 ReenaAndre MD 10/10/2018 10/27/2018 suboxone 8 mg-2 mg sl film 90 30 ReenaAndre MD 10/10/2018 10/10/2018 dextroamp-amphetamin 20 mg tab 30 30 ReenaAndre MD 10/10/2018 10/10/2018 clonazepam 1 mg tablet 60 30 ReenaAndre MD 09/10/2018 09/11/2018 buprenorphine-naloxone 8-2 mg sl film 90 30 ReenaAndre MD 09/10/2018 09/11/2018 dextroamp-amphetamin 20 mg tab 30 30 Andre Valles MD 09/10/2018 09/11/2018 clonazepam 1 mg tablet 60 30 Andre Valles MD Patient Name: Nishant Contreras Date: 1985 Address: [address] [place] [id number] Sex: Female Rx Written Rx Dispensed Drug Quantity Days Supply Prescriber Name 05/07/2018 06/02/2018 suboxone 8 mg-2 mg sl film 36 14 SciaccYvonne martinez 05/14/2018 05/17/2018 clonazepam 1 mg tablet 28 14 Andre Valles MD 05/07/2018 05/07/2018 dextroamp-amphetamin 30 mg tab 30 30 SciaccaYvonne 04/21/2018 04/21/2018 suboxone 8 mg-2 mg sl film 73 29 Heemstra, Lien L DO 04/21/2018 04/21/2018 clonazepam 1 mg tablet 30 30 Heemstra, Lien L DO 04/14/2018 04/14/2018 suboxone 8 mg-2 mg sl film 18 7 Heemstra, Lien L DO 04/14/2018 04/14/2018 clonazepam 1 mg tablet 7 7 Heemstra, Lien L DO 04/14/2018 04/14/2018 dextroamp-amphet er 30 mg cap 7 7 Heemstra, Lien L DO Patient Name: Nishant Contreras Date: 1985 Address: [address] [place] [id number] Sex: Female Rx Written Rx Dispensed Drug Quantity Days Supply Prescriber Name 04/21/2018 04/21/2018 dextroamp-amphet er 30 mg cap 30 30 Heemstra, Lien L DO Patient Name: Nishant Yip Date: 1985 Address: [address] [place] [id number] Sex: Female Rx Written Rx Dispensed Drug Quantity Days Supply Prescriber Name 02/12/2018 02/25/2018 dextroamp-amphetamin 20 mg tab 60 30 Jessika Perez NP 02/25/2018 02/25/2018 vyvanse 50 mg capsule 30 30 Andre Valles MD 11/06/2017 02/25/2018 zolpidem tartrate 10 mg tablet 30 30 Andre Valles MD 02/12/2018 02/25/2018 clonazepam 2 mg tablet 60 30 Jessika Perez NP 02/25/2018 02/25/2018 suboxone 8 mg-2 mg sl film Assessment: Anxiolytic withdrawal Opioid withdrawal Vital Signs 02/23/19 02/23/19 13:11 17:10 Temperature 98.2 F 97.3 F L Pulse Rate 73 76 Respiratory 18 18 Rate Blood Pressure 112/56 L 118/50 L Plan: Will start on Benzo taper.
[2019-02-23] MEDS ORDERED: LORazepam 2 MG TABLET PO ONE (18:15)
[2019-02-23] MEDS ORDERED: SUVOREXANT 10 MG TABLET PO PRN (22:00)
[2019-02-23] MEDS: LORazepam 2 MG TABLET PO SCH (22:13)
[2019-02-23] MEDS: THIAMINE HCL 100 MG TABLET (FP) PO SCH (22:13)
[2019-02-24] MEDS: IBUPROFEN 400 MG TABLET (FP) PO PRN ×2 (01:30→12:08)
[2019-02-24] MEDS: hydrOXYzine PAMOATE 25 MG CAPSULE (FP) PO PRN (06:10)
[2019-02-24] MEDS: LORazepam 0.5 MG TABLET PO PRN ×2 (06:10→15:18)
[2019-02-24] MEDS: METHOCARBAMOL 500 MG TABLET PO PRN ×2 (06:10→15:18)
[2019-02-24] MEDS: LORazepam 2 MG TABLET PO SCH ×3 (06:45→17:44)
[2019-02-24] MEDS ORDERED: METHADONE HCL 5 MG TABLET (FOR DETOX USE ONLY) ONE (09:07)
[2019-02-24] MEDS ORDERED: METHADONE HCL 10 MG TABLET (FOR DETOX USE ONLY) ONE (09:08)
[2019-02-24] MEDS ORDERED: PANTOPRAZOLE 40 MG TABLET (FP) PO SCH (10:00)
[2019-02-24] MEDS ORDERED: METHADONE (DETOX) 20 MG, METHADONE (DETOX) 5 MG PO ONE (10:00)
[2019-02-24] MEDS ORDERED: PATIENT'S OWN MEDICATION (NON-FORMULARY) (Dextroamphetamine/Amphetamine [Adderall Xr 20 Mg PO SCH (10:00)
[2019-02-24] MEDS ORDERED: NICOTINE 7 MG/24 HOURS TOPICAL PATCH TD SCH (10:00)
[2019-02-24] MEDS ORDERED: PRENATAL VITAMINS W/ FOLIC ACID TABLET (FP) PO SCH (10:00)
[2019-02-24] MEDS: DEXTROAMPHETAMINE/AMPHETAMINE 10 MG CAP.ER.24H PO SCH (10:24)
[2019-02-24] MEDS ORDERED: IBUPROFEN 400 MG TABLET (FP) PO PRN (12:15)
--- NOTE | 2019-02-24 14:09 | PN ---
[facility] CIWA - CIWA Score Nausea/Vomitin-Mild Nausea/No Vomiting Muscle Tremors: 2 Anxiety: 2 Agitation: 2 Paroxysmal Sweats: No Perspiration Orientation: 0-Oriented Tacttile Disturbances: 1-Very Mild Itch/Numbness Auditory Disturbances: 0-None Visual Disturbances: 1-Very Mild Sensitivity Headache: 2-Mild CIWA-Ar Total Score: 11 [facility] COWS - Scale Resting Pulse: 0= [place] 80 or Below Sweatin= No chills or Flushing Restless Observation: 1= Difficult to Sit Still Pupil Size: 1= Pupils >than Normal Bone or Joint Aches: 1= Mild Discomfort Runny Nose/ Eye Tearin= Runny Nose/Eyes GI Upset > 30mins: 1= Stomach Cramp Tremor Observation of Outstretched Hands: 1= Tremor [place], Not Seen Yawning Observation: 1= 1-2x During Session Anxiety or Irritability: 2=Irritable/Anxious Goose Flesh Skin: 0=Smooth Skin COWS Score: 10 [facility] Progress Note (SOAP) Subjective: alert,irritable,anxious,interrupted sleep,pain in the body and back,toothache Objective: 02/24/19 14:08 Vital Signs Temperature 97.3 F L 02/24/19 09:36 Pulse Rate 73 02/24/19 09:36 Respiratory Rate 17 02/24/19 09:36 Blood Pressure 106/46 L 02/24/19 09:36 O2 Sat by Pulse Oximetry (%) Laboratory Last Values WBC 6.9 K/mm3 (4.0-10.0) 02/23/19 11:00 RBC 4.50 M/mm3 (3.60-5.2) 02/23/19 11:00 Hgb 12.6 GM/dL (10.7-15.3) 02/23/19 11:00 Hct 37.8 % (32.4-45.2) 02/23/19 11:00 MCV 83.9 fl (80-96) 02/23/19 11:00 MCH 28.0 pg (25.7-33.7) 02/23/19 11:00 MCHC 33.3 g/dl (32.0-36.0) 02/23/19 11:00 RDW 14.9 % (11.6-15.6) 02/23/19 11:00 Plt Count 283 K/MM3 (134-434) D 02/23/19 11:00 MPV 9.6 fl (7.5-11.1) 02/23/19 11:00 Sodium 138 mmol/L (136-145) 02/23/19 11:00 Potassium 3.9 mmol/L (3.5-5.1) 02/23/19 11:00 Chloride 105 mmol/L (98-107) 02/23/19 11:00 Carbon Dioxide 28 mmol/L (21-32) 02/23/19 11:00 Anion Gap 5 MMOL/L (8-16) L 02/23/19 11:00 BUN 13.9 mg/dL (7-18) 02/23/19 11:00 Creatinine 0.8 mg/dL (0.55-1.3) 02/23/19 11:00 Est GFR (CKD-EPI)AfAm 113.06 02/23/19 11:00 Est GFR (CKD-EPI)NonAf 97.55 02/23/19 11:00 Random Glucose 94 mg/dL (74-106) 02/23/19 11:00 Calcium 10.0 mg/dL (8.5-10.1) 02/23/19 11:00 Total Bilirubin 0.2 mg/dL (0.2-1) 02/23/19 11:00 AST 45 U/L (15-37) H 02/23/19 11:00 ALT 58 U/L (13-61) 02/23/19 11:00 Alkaline Phosphatase 66 U/L (45-117) 02/23/19 11:00 Total Protein 7.7 g/dl (6.4-8.2) 02/23/19 11:00 Albumin 3.8 g/dl (3.4-5.0) 02/23/19 11:00 Assessment: 02/24/19 14:08 withdrawal symptom Plan: continue detox methadone and ativan regimen
[2019-02-24] MEDS: cloNIDine HCL 0.1 MG TABLET PO PRN (15:18)
[2019-02-24] MEDS ORDERED: LORazepam 2 MG/ML SDV VIAL ONE (16:56)
--- NOTE | 2019-02-24 17:09 | RAPID ---
Physical Examination Vital Signs: Vital Signs Temperature 98.2 F 02/24/19 15:14 Pulse Rate 73 02/24/19 15:14 Respiratory Rate 18 02/24/19 15:14 Blood Pressure 115/75 02/24/19 15:14 O2 Sat by Pulse Oximetry (%) 110/61, P-63, O2-100 Findings/Remarks: Rapid response was called Pt admitted for detox from ETOH and xanax Last benzo received 3pm Patient was found on the floor. Said to have seized with blood stain on floor from nose Pt found tremulous, Appeared to have wet herself with urine Pt became alert while we were in the room, did not appear confused, was coherent but with generalized tremulousness Assessment: Withdrawal seizures to benzos/alcohol Nose bleed, resolved Plan: 2mg im ativan given stat Nose bleed resolved [facility] EM contacted Pt transferred to [facility] to complete detox and seizure work up Labs: CBC, BMP 02/23/19 11:00 02/23/19 11:00
[2019-02-24] MEDS ORDERED: LORazepam 2 MG/ML SDV VIAL IM ONE (17:15)
[2019-02-24 17:37] VITALS: BP 110/61; TEMP 98.2
[2019-02-24 20:10] VITALS: PULSE 63
[2019-02-25] MEDS: THIAMINE HCL 100 MG TABLET (FP) PO SCH (00:13)
[2019-02-25] MEDS: LORazepam 2 MG TABLET PO SCH (00:14)
[2019-02-25] MEDS ORDERED: LORazepam 1 MG TABLET PO SCH (05:00)
[2019-02-25] MEDS ORDERED: METHADONE HCL 10 MG TABLET (FOR DETOX USE ONLY) PO ONE (10:00)
[2019-02-26] MEDS ORDERED: LORazepam 0.5 MG TABLET PO SCH (05:00)
[2019-02-26] MEDS ORDERED: METHADONE (DETOX) 10 MG, METHADONE (DETOX) 5 MG PO ONE (10:00)
[2019-02-27] MEDS ORDERED: LORazepam 0.5 MG TABLET PO ONE (05:00)
[2019-02-27] MEDS ORDERED: METHADONE HCL 10 MG TABLET (FOR DETOX USE ONLY) PO ONE (10:00)
[2019-02-28] MEDS ORDERED: METHADONE HCL 5 MG TABLET (FOR DETOX USE ONLY) PO ONE (06:00)
== END 2019-02-24 05:29 | disposition home or self-care (01) | DRG 773 ==
LOC: YASAS 09:26 → Y6N 11:32
PROVIDERS: ADMIT Allergy & Immunology; ATTEND Allergy & Immunology
PROC: HZ2ZZZZ Detoxification Services for Substance Abuse Treatment (ICD-10-PCS; principal; 2019-02-23)
DX: F13.230 Sedative, hypnotic or anxiolytic dependence with withdrawal, uncomplicated (principal); F11.23 Opioid dependence with withdrawal; F14.20 Cocaine dependence, uncomplicated; F17.210 Nicotine dependence, cigarettes, uncomplicated; F41.9 Anxiety disorder, unspecified; F90.9 Attention-deficit hyperactivity disorder, unspecified type; R56.9 Unspecified convulsions; R04.0 Epistaxis; K21.9 Gastro-esophageal reflux disease without esophagitis; R63.4 Abnormal weight loss; W18.39XA Other fall on same level, initial encounter; Y93.89 Activity, other specified; Y92.238 Other place in hospital as the place of occurrence of the external cause
CPT/HCPCS: 36415; 80053; 85027; 86593; J0735

== ENCOUNTER 2019-02-24 17:45 | Emergency (ER) | payer OTHER ==
[2019-02-24 18:08] VITALS: BP 127/92; PULSE 84; TEMP 98.2; BMI 19.5
--- NOTE | 2019-02-24 18:41 | PDOC ---
History of Present Illness - General Chief Complaint: Seizure Stated Complaint: SEIZURE Time Seen by Provider: 02/24/19 18:37 - History of Present Illness Initial Comments: 02/24/19 21:13 34 year old woman with a history of benzo, heroin, cocaine and etoh abuse who presents with witnessed seizure while at [facility]. The patient was given ativan at [facility] and sent over for medical eval. The patient reports that she last took benzos 2 days ago and last used heroin and cocaine 1 day ago. The patient also takes adderall for adhd, clonipin for anxiety, ambien for sleep. She admits to some occipital head pain after her seixure Past History - Past Medical History Allergies/Adverse Reactions: Allergies Allergy/AdvReac Type Severity Reaction Status Date / Time No Known Allergies Allergy Verified 02/23/19 09:56 Home Medications: Ambulatory Orders Zolpidem Tartrate [Ambien] 10 mg PO HS 03/31/15 Pantoprazole Sodium [Protonix -] 40 mg PO DAILY #30 tablet.ec 09/05/15 Clonazepam [Klonopin] 1 mg PO BID 02/23/19 Dextroamphetamine/Amphetamine [Adderall Xr 20 mg Capsule] 20 mg PO DAILY Anemia: No Asthma: No Cancer: No Cardiac Disorders: No CVA: No COPD: No CHF: No Dementia: No Diabetes: No GI Disorders: No Disorders: No HTN: No Hypercholesterolemia: No Kidney Stones: No Liver Disease: No Seizures: Yes (detox related) Thyroid Disease: No - Surgical History Abdominal Surgery: No Appendectomy: No Cardiac Surgery: No Cholecystectomy: No Lung Surgery: No Neurologic Surgery: No Orthopedic Surgery: No - Reproductive History PID: No - Psycho Social/Smoking Cessation Hx Smoking History: Current every day smoker Have you smoked in the past 12 months: Yes Number of Cigarettes Smoked Daily: 10 Cigars Per Day: 0 Information on smoking cessation initiated: No 'Breaking Loose' booklet given: 02/23/19 Hx Alcohol Use: Yes Drug/Substance Use Hx: Yes Substance Use Type: Cocaine, Heroin, Tranquilizers Hx Substance Use Treatment: Yes *Physical Exam - Vital Signs Last Vital Signs Temp Pulse Resp BP Pulse Ox 98.2 F 84 18 127/92 100 02/24/19 17:51 02/24/19 17:51 02/24/19 17:51 02/24/19 17:51 02/24/19 17:51 ED Treatment Course - LABORATORY CBC & Chemistry Diagram: 02/24/19 19:19 02/24/19 19:19 Discharge - Discharge Information Problems reviewed: Yes Clinical Impression/Diagnosis: Opioid dependence Disposition: AGAINST MEDICAL ADVICE - Follow up/Referral - Patient Discharge Instructions - Post Discharge Activity
[2019-02-24] MEDS ORDERED: FOLIC ACID INJECTION - 1 MG, THIAMINE HCL 100 MG, MULTIVIT INJECTION ADULT 10 ML in SOD... IVPB ONE (18:43)
[2019-02-24] MEDS ORDERED: LORazepam 2 MG/ML SDV VIAL ONE (19:16)
[2019-02-24 19:17] LABS: EPI CELLS 23.6 /HPF (0-5/HPF); HYALINE CASTS 0 /lpf (0-8); PH,URINE 8.5 (5.0-8.0); URINE APPEARANCE CLOUDY; URINE BACTERIA 824.2 /hpf (NEGATIVE); URINE BILIRUBIN NEGATIVE (NEGATIVE); URINE COLOR YELLOW; URINE GLUCOSE (UA) NEGATIVE (NEGATIVE); URINE KETONE NEGATIVE (NEGATIVE); URINE LEUK ESTERASE TRACE (NEGATIVE); URINE NITRITE NEGATIVE (NEGATIVE); URINE PROTEIN NEGATIVE (NEGATIVE); URINE RBC 1 /hpf (0-4); URINE UROBILINOGEN 0.2 mg/dL (0.2-1.0); URINE WBC 8 /hpf (0-5)
[2019-02-24] MEDS ORDERED: ACETAMINOPHEN 1000 MG/100 ML VIAL (NON FORMULARY) IVPB ONE (19:22)
[2019-02-24] MEDS ORDERED: ACETAMINOPHEN INJECTION 100 ML IVPB ONE (19:34)
[2019-02-24 19:39] LABS: BASO % 0.7 % (0-2.0); EOS % 1.5 % (0-4.5); HEMATOCRIT 37.7 % (32.4-45.2); HEMOGLOBIN 12.5 GM/dL (10.7-15.3); LYMPH % 27.9 % (8-40); MCHC 33.3 g/dl (32.0-36.0); MEAN CELL VOLUME 84.2 fl (80-96); MEAN PLT VOLUME 8.8 fl (7.5-11.1); MONO % 6.2 % (3.8-10.2); NEUT % 63.7 % (42.8-82.8); PLATELET COUNT 261 K/MM3 (134-434); RBC 4.48 M/mm3 (3.60-5.2); RDW 14.7 % (11.6-15.6); WHITE BLOOD COUNT 7.4 K/mm3 (4.0-10.0)
--- NOTE | 2019-02-24 19:48 | PDOC ---
Attending Attestation - Resident Resident Name: Akosua Hoffman - ED Attending Attestation I have performed the following: I have examined & evaluated the patient, The case was reviewed & discussed with the resident, I agree w/resident's findings & plan - HPI HPI: 02/24/19 20:48 see resident hpi - Physicial Exam PE: 02/24/19 20:48 agree with resident exam - Medical Decision Making 02/24/19 20:48 34-year-old female status post seizure activity while in detox Patient now at baseline Records reviewed, there is also history of alcohol use listed in patient's past We will hold for medical observation and likely neurology consultation prior to release back to rehab
[2019-02-24 19:53] LABS: INR 0.94 (0.83-1.09); PROTHROMBIN TIME (PATIENT) 11.1 SEC (9.7-13.0)
[2019-02-24 19:55] LABS: ACTIVATED PTT 36.8 SECONDS (25.2-36.5)
[2019-02-24 20:05] LABS: ALBUMIN 4.2 g/dl (3.4-5.0); ALK PHOS 63 U/L (45-117); ANION GAP 2 MMOL/L (8-16); BILIRUBIN,TOTAL 0.2 mg/dL (0.2-1); BLOOD UREA NITROGEN 12.2 mg/dL (7-18); CALCIUM 9.9 mg/dL (8.5-10.1); CHLORIDE 102 mmol/L (98-107); CO2 31 mmol/L (21-32); CREATININE 0.8 mg/dL (0.55-1.3); GLUCOSE,RANDOM 80 mg/dL (74-106); POTASSIUM 4.2 mmol/L (3.5-5.1); SGOT/AST 68 U/L (15-37); SGPT/ALT 79 U/L (13-61); SODIUM 135 mmol/L (136-145); TOT PROT 8.1 g/dl (6.4-8.2)
[2019-02-24 20:15] LABS: COCAINE, UR NEGATIVE ng/ml (CUTOFF=300); METHADONE, UR NEGATIVE ng/ml (CUTOFF=300); PHENCYCLIDINE,URINE NEGATIVE ng/ml (CUTOFF=25); URINE BARBITURATES NEGATIVE ng/ml (CUTOFF=200); URINE BENZODIAZEPINES NEGATIVE ng/ml (CUTOFF=200)
[2019-02-24 20:18] LABS: OPIATES, URI POSITIVE ng/ml (CUTOFF=300); URINE AMPHETAMINES POSITIVE ng/ml (CUTOFF=500)
--- NOTE | 2019-02-25 10:29 | EKG ---
Test Reason : Blood Pressure : / mmHG Vent. Rate : 084 BPM Atrial Rate : 084 BPM P-R Int : 130 ms QRS Dur : 072 ms QT Int : 364 ms P-R-T Axes : 058 070 058 degrees QTc Int : 430 ms POOR DATA QUALITY, INTERPRETATION MAY BE ADVERSELY AFFECTED NORMAL SINUS RHYTHM NORMAL ECG NO PREVIOUS ECGS AVAILABLE Confirmed by MORTEZA ROSADO MD ([id number]) on 02/25/2019 10:29:30 AM Referred By: Confirmed By:MORTEZA ROSADO MD
== END 2019-02-24 21:30 | disposition left against medical advice (07) ==
LOC: JER 17:45
PROC: 3E033NZ Introduction of Analgesics, Hypnotics, Sedatives into Peripheral Vein, Percutaneous Approach (ICD-10-PCS; principal; 2019-02-24)
PROC: 3E033NZ Introduction of Analgesics, Hypnotics, Sedatives into Peripheral Vein, Percutaneous Approach (ICD-10-PCS; 2019-02-24)
DX: R56.9 Unspecified convulsions (principal); F10.20 Alcohol dependence, uncomplicated; F11.20 Opioid dependence, uncomplicated; F13.20 Sedative, hypnotic or anxiolytic dependence, uncomplicated; F14.20 Cocaine dependence, uncomplicated; F17.210 Nicotine dependence, cigarettes, uncomplicated
CPT/HCPCS: 36415; 70450-TC; 72125-TC; 80053; 80307; 81003; 84703; 85025; 85610; 85730; 87086; 93005; 93010; 96374; 96375; 99283-25; J0131; J7030

== ENCOUNTER 2020-12-18 06:08 | Inpatient (IN) | payer OTHER ==
[2020-12-18 06:43] VITALS: BMI 19.8
[2020-12-18] MEDS ORDERED: ONDANSETRON *ODT* 4 MG TABLET SL PRN (09:42)
[2020-12-18] MEDS ORDERED: MENTHOL/PHENOL 1 EACH UD MM PRN (09:42)
[2020-12-18] MEDS ORDERED: MAGNESIUM CITRATE 300 ML BOTTLE PO PRN (09:42)
[2020-12-18] MEDS ORDERED: METHOCARBAMOL 500 MG TABLET PO PRN (09:42)
[2020-12-18] MEDS ORDERED: MAGNESIUM HYDROX 2400MG/30ML ORAL SUSPENSION 30 ML CUP PO PRN (09:42)
[2020-12-18] MEDS ORDERED: BISMUTH SUBSALICYLATE 524 MG/30 ML PO PRN (09:42)
[2020-12-18] MEDS ORDERED: MAG HYDROX/AL HYDROX/SIMETH 30 ML UNIT-DOSE CUP PO PRN (09:42)
[2020-12-18] MEDS ORDERED: ACETAMINOPHEN 325 MG TABLET (FP) PO PRN ×2 (09:42)
[2020-12-18] MEDS ORDERED: NICOTINE POLACRILEX 2 MG GUM BUC PRN (09:47)
[2020-12-18] MEDS ORDERED: BACITRACIN 15 GM TUBE TOPICAL OINTMENT TP SCH ×2 (10:00→13:30)
[2020-12-18] MEDS: hydrOXYzine PAMOATE 25 MG CAPSULE (FP) PO SCH ×4 (11:30→22:05)
[2020-12-18] MEDS: PRENATAL VITAMINS W/ FOLIC ACID TABLET (FP) PO SCH (11:31)
[2020-12-18] MEDS: diazePAM 5 MG TABLET PO SCH ×3 (11:31→22:04)
[2020-12-18] MEDS: NICOTINE 21 MG/24 HOURS TOPICAL PATCH TD SCH (11:32)
[2020-12-18] MEDS: diazePAM 5 MG TABLET PO PRN (14:26)
[2020-12-18] MEDS: BACITRACIN 0.9 GM PACKET TP SCH (22:04)
[2020-12-18] MEDS: THIAMINE HCL 100 MG TABLET (FP) PO SCH (22:05)
[2020-12-18] MEDS: MELATONIN 5 MG TABLETS PO SCH (22:05)
[2020-12-18] MEDS: QUEtiapine FUMARATE 50 MG TABLET PO PRN (22:08)
[2020-12-19] MEDS ORDERED: methaDONE HCL 40 MG DISPERSABLE TABLET ONE (04:09)
[2020-12-19] MEDS ORDERED: methaDONE HCL 10 MG TABLET ONE (04:09)
[2020-12-19] MEDS ORDERED: methaDONE HCL 10 MG TABLET PO SCH (06:00)
[2020-12-19] MEDS: diazePAM 5 MG TABLET PO SCH ×4 (06:06→22:17)
[2020-12-19] MEDS: hydrOXYzine PAMOATE 25 MG CAPSULE (FP) PO SCH ×5 (06:07→22:18)
[2020-12-19] MEDS: PRENATAL VITAMINS W/ FOLIC ACID TABLET (FP) PO SCH (10:20)
[2020-12-19] MEDS: BACITRACIN 0.9 GM PACKET TP SCH ×2 (10:20→22:17)
[2020-12-19] MEDS: NICOTINE 10 MG CARTRIDGE (INHALER) IH PRN (10:21)
[2020-12-19] MEDS: NICOTINE 21 MG/24 HOURS TOPICAL PATCH TD SCH (10:22)
[2020-12-19 13:58] LABS: HEMATOCRIT 30.8 % (32.4-45.2); HEMOGLOBIN 9.9 GM/dL (10.7-15.3); MCH 26.8 pg (25.7-33.7); MCHC 31.9 g/dl (32.0-36.0); MEAN CELL VOLUME 83.9 fl (80-96); MEAN PLT VOLUME 8.3 fl (7.5-11.1); PLATELET COUNT 281 10^3/uL (134-434); RBC 3.68 M/mm3 (3.60-5.2); RDW 20.9 % (11.6-15.6)
[2020-12-19 14:32] LABS: CALCIUM 9.5 mg/dL (8.5-10.1)
[2020-12-19 14:33] LABS: ALBUMIN 2.9 g/dl (3.4-5.0); BLOOD UREA NITROGEN 6.6 mg/dL (7-18)
[2020-12-19 14:36] LABS: CREATININE 0.5 mg/dL (0.55-1.3)
[2020-12-19 14:37] LABS: BILIRUBIN,TOTAL 0.8 mg/dL (0.2-1)
[2020-12-19] MEDS: diazePAM 5 MG TABLET PO PRN (15:53)
[2020-12-19] MEDS: THIAMINE HCL 100 MG TABLET (FP) PO SCH (22:18)
[2020-12-19] MEDS: IBUPROFEN 400 MG TABLET (FP) PO PRN (22:20)
[2020-12-19] MEDS: MELATONIN 5 MG TABLETS PO SCH (22:20)
[2020-12-19] MEDS: QUEtiapine FUMARATE 50 MG TABLET PO PRN (22:20)
[2020-12-20] MEDS: IBUPROFEN 400 MG TABLET (FP) PO PRN ×2 (03:59→17:41)
[2020-12-20] MEDS: diazePAM 5 MG TABLET PO PRN ×3 (04:00→17:40)
[2020-12-20] MEDS ORDERED: methaDONE HCL 10 MG TABLET ONE (04:09)
[2020-12-20] MEDS ORDERED: methaDONE HCL 40 MG DISPERSABLE TABLET ONE (04:09)
[2020-12-20] MEDS: diazePAM 5 MG TABLET PO SCH ×3 (06:52→22:38)
[2020-12-20] MEDS: hydrOXYzine PAMOATE 25 MG CAPSULE (FP) PO SCH ×5 (06:52→22:38)
[2020-12-20] MEDS ORDERED: cloNIDine HCL 0.1 MG TABLET PO PRN (09:58)
[2020-12-20] MEDS: FERROUS SO4 325 MG TABLET (FP) PO SCH ×2 (10:09→22:37)
[2020-12-20] MEDS: PRENATAL VITAMINS W/ FOLIC ACID TABLET (FP) PO SCH (10:09)
[2020-12-20] MEDS: NICOTINE 21 MG/24 HOURS TOPICAL PATCH TD SCH (10:09)
[2020-12-20] MEDS: BACITRACIN 0.9 GM PACKET TP SCH ×2 (10:13→22:37)
[2020-12-20] MEDS: NICOTINE 10 MG CARTRIDGE (INHALER) IH PRN (17:43)
[2020-12-20] MEDS: THIAMINE HCL 100 MG TABLET (FP) PO SCH (22:37)
[2020-12-20] MEDS: QUEtiapine FUMARATE 50 MG TABLET PO PRN (22:37)
[2020-12-20] MEDS: MELATONIN 5 MG TABLETS PO SCH (22:38)
[2020-12-21] MEDS ORDERED: methaDONE HCL 40 MG DISPERSABLE TABLET ONE (04:09)
[2020-12-21] MEDS ORDERED: methaDONE HCL 10 MG TABLET ONE (04:09)
[2020-12-21] MEDS: hydrOXYzine PAMOATE 25 MG CAPSULE (FP) PO SCH ×5 (05:14→22:03)
[2020-12-21] MEDS: diazePAM 5 MG TABLET PO SCH ×2 (05:15→17:28)
[2020-12-21] MEDS: NICOTINE 21 MG/24 HOURS TOPICAL PATCH TD SCH (10:25)
[2020-12-21] MEDS: PRENATAL VITAMINS W/ FOLIC ACID TABLET (FP) PO SCH (10:25)
[2020-12-21] MEDS: FERROUS SO4 325 MG TABLET (FP) PO SCH ×2 (10:25→22:01)
[2020-12-21] MEDS: BACITRACIN 0.9 GM PACKET TP SCH ×2 (10:25→22:01)
[2020-12-21] MEDS ORDERED: QUEtiapine FUMARATE 100 MG TABLET (FP) PO PRN (14:23)
[2020-12-21] MEDS: MELATONIN 5 MG TABLETS PO SCH (22:01)
[2020-12-21] MEDS: THIAMINE HCL 100 MG TABLET (FP) PO SCH (22:02)
[2020-12-22] MEDS ORDERED: methaDONE HCL 40 MG DISPERSABLE TABLET ONE (04:13)
[2020-12-22] MEDS ORDERED: methaDONE HCL 10 MG TABLET ONE (04:13)
[2020-12-22] MEDS: hydrOXYzine PAMOATE 25 MG CAPSULE (FP) PO SCH (05:10)
[2020-12-22] MEDS ORDERED: diazePAM 5 MG TABLET PO ONE (06:00)
[2020-12-22 06:08] VITALS: BP 112/74; PULSE 94; TEMP 97.7
== END 2020-12-22 09:27 | disposition home or self-care (01) | DRG 773 ==
LOC: YASAS 06:08 → Y6N 10:36
PROVIDERS: ADMIT Allergy & Immunology; ATTEND Allergy & Immunology
PROC: HZ2ZZZZ Detoxification Services for Substance Abuse Treatment (ICD-10-PCS; principal; 2020-12-18)
DX: F10.230 Alcohol dependence with withdrawal, uncomplicated (principal); F11.20 Opioid dependence, uncomplicated; F13.10 Sedative, hypnotic or anxiolytic abuse, uncomplicated; F17.210 Nicotine dependence, cigarettes, uncomplicated; F19.282 Other psychoactive substance dependence with psychoactive substance-induced sleep disorder; F19.280 Other psychoactive substance dependence with psychoactive substance-induced anxiety disorder; F19.24 Other psychoactive substance dependence with psychoactive substance-induced mood disorder; F90.0 Attention-deficit hyperactivity disorder, predominantly inattentive type; D64.9 Anemia, unspecified; Z86.19 Personal history of other infectious and parasitic diseases; Z86.69 Personal history of other diseases of the nervous system and sense organs; Z56.0 Unemployment, unspecified; Z59.0 Homelessness
CPT/HCPCS: 36415; 80053; 81025; 85027; 93005; 93010; C9803; U0003; U0005

== ENCOUNTER 2021-07-09 22:42 | Inpatient (IN) | payer OTHER ==
[2021-07-09] MEDS ORDERED: VANCOMYCIN 1 GM in D5W (PRE-DOCKED) 1,000 MG/250 ML IVPB ONE (23:44)
[2021-07-10] MEDS ORDERED: VANCOMYCIN 1 GRAM (PRE-DOCKED) 1,000 MG/250 ML BAG IVPB ONE (00:33)
[2021-07-10 01:14] LABS: EOS % 1.2 % (0-4.5); HEMATOCRIT 31.6 % (32.4-45.2); HEMOGLOBIN 10.2 GM/dL (10.7-15.3); LYMPH % 40.2 % (8-40); MCH 26.6 pg (25.7-33.7); MCHC 32.2 g/dl (32.0-36.0); MEAN CELL VOLUME 82.5 fl (80-96); MEAN PLT VOLUME 7.8 fl (7.5-11.1); MONO % 9.3 % (3.8-10.2); NEUT % 48.3 % (42.8-82.8); PLATELET COUNT 224 10^3/uL (134-434); RBC 3.83 M/mm3 (3.60-5.2); RDW 19.4 % (11.6-15.6); WHITE BLOOD COUNT 5.1 K/mm3 (4.0-10.0)
[2021-07-10 01:22] LABS: CHLORIDE 102 mmol/L (98-107); SODIUM 135 mmol/L (136-145)
[2021-07-10 01:24] LABS: ALBUMIN 3.4 g/dl (3.4-5.0); ANION GAP 6 MMOL/L (8-16); BLOOD UREA NITROGEN 12.5 mg/dL (7-18); CALCIUM 9.2 mg/dL (8.5-10.1); CO2 26 mmol/L (21-32); GLUCOSE,RANDOM 87 mg/dL (74-106)
[2021-07-10 01:28] LABS: CREATININE 0.6 mg/dL (0.55-1.3); SGOT/AST 144 U/L (15-37); SGPT/ALT 56 U/L (13-61)
[2021-07-10 01:30] LABS: ALK PHOS 86 U/L (45-117); BILIRUBIN,TOTAL < 0.1 mg/dL (0.2-1); TOT PROT 8.2 g/dl (6.4-8.2)
[2021-07-10] MEDS ORDERED: LORazepam 1 MG TABLET PO PRN (03:52)
[2021-07-10] MEDS ORDERED: FOLIC ACID INJECTION - 1 MG, THIAMINE HCL 100 MG, MULTIVIT INJECTION ADULT 10 ML in SOD... IVPB ONE (03:55)
[2021-07-10] MEDS ORDERED: LORazepam 1 MG TABLET ONE (05:51)
[2021-07-10] MEDS: LORazepam 1 MG TABLET PO SCH ×2 (05:56→10:20)
[2021-07-10] MEDS ORDERED: CELECOXIB 100 MG CAPSULE PO SCH (10:00)
[2021-07-10] MEDS ORDERED: THIAMINE HCL 100 MG TABLET (FP) PO SCH (10:00)
[2021-07-10] MEDS ORDERED: ENOXAPARIN NA (PORCINE) 40 MG/0.4 ML DISP.SYRIN SQ SCH (10:00)
[2021-07-10] MEDS ORDERED: FOLIC ACID 1 MG TABLET (FP) PO SCH (10:00)
[2021-07-10] MEDS ORDERED: PIPERACILLIN/TAZOB 3.375 GM 3.375 GM in DEXTROSE 5%-WATER - 50 ML IVPB ONE (10:29)
[2021-07-10] MEDS ORDERED: methaDONE HCL 40 MG DISPERSABLE TABLET ONE (10:42)
[2021-07-10] MEDS ORDERED: methaDONE HCL 10 MG TABLET ONE (10:42)
[2021-07-10] MEDS ORDERED: PIPERACILLIN/TAZOBACTAM 3.375 GM VIAL IVPB ONE (10:43)
[2021-07-10] MEDS ORDERED: DEXTROSE 5%-WATER - 50 ML IVPB ONE (10:43)
[2021-07-10 10:57] VITALS: BP 122/77; PULSE 77; TEMP 98; BMI 20.3
[2021-07-10] MEDS ORDERED: CLINDAMYCIN 300 MG PREMIX IVPB 300 MG/50 ML BAG IVPB SCH (12:00)
[2021-07-10] MEDS ORDERED: PIPERACILLIN/TAZOB 3.375 GM 3.375 GM in DEXTROSE 5%-WATER - 50 ML IVPB SCH (18:00)
[2021-07-11] MEDS ORDERED: VANCOMYCIN 1 GM/200 ML PREMIX BAG IVPB SCH (01:00)
[2021-07-11] MEDS ORDERED: LORazepam 1 MG TABLET PO SCH (05:00)
[2021-07-12] MEDS ORDERED: LORazepam 0.5 MG TABLET PO PRN
[2021-07-12] MEDS ORDERED: VANCOMYCIN 1 GM/200 ML PREMIX BAG IVPB SCH (01:00)
[2021-07-12] MEDS ORDERED: LORazepam 0.5 MG TABLET PO SCH (05:00)
[2021-07-13] MEDS ORDERED: LORazepam 0.5 MG TABLET PO ONE (05:00)
== END 2021-07-10 11:41 | disposition short-term general hospital (02) | DRG 351 ==
LOC: JER 22:42 → JERBED 07-10 01:47 → J7W 07-10 06:15
PROVIDERS: ADMIT Hospitalist
DX: M79.A12 Nontraumatic compartment syndrome of left upper extremity (principal); F11.20 Opioid dependence, uncomplicated; K75.9 Inflammatory liver disease, unspecified; F17.210 Nicotine dependence, cigarettes, uncomplicated; L03.012 Cellulitis of left finger
CPT/HCPCS: 36415; 80053; 85025; 87040; 99285-25; C9803-CS; U0003; U0005